=== PATIENT | female | born 1965 | race Caucasian/White ===

== ENCOUNTER 2021-06-26 19:14 | Inpatient (IN) | payer MEDICARE, OTHER ==
[2021-06-26] VITALS (7 sets, daily range): BP systolic 110–136; BP diastolic 61–81
[~2021-06-26] VITALS: Ht 147.3 cm; Wt 69.4 kg
[2021-06-26] MEDS ORDERED: ONDANSETRON 4 MG (ZOFRAN) ORAL DISSOLVE TAB PO PRN (21:30)
[2021-06-26] MEDS ORDERED: MELATONIN 3 MG TABLET PO PRN (21:30)
[2021-06-26] MEDS ORDERED: polyethylene glycoL POWDER 17 GM (MIRALAX) PACK PO PRN (21:30)
[2021-06-26] MEDS ORDERED: ACETAMINOPHEN 325 MG TABLET PO PRN (21:30)
[2021-06-26] MEDS ORDERED: diphenhydrAMINE 25 MG TAB (BENADRYL) PO PRN (21:30)
[2021-06-26] MEDS ORDERED: ANTACID SUSP 30 ML UDC (MYLANTA) PO PRN (21:30)
--- OUTSIDE RECORDS SUMMARY | 2021-06-26 21:30 | XMS REPORT | Encounter Summary ---
Author Author [facility] Organization [facility] Address Unknown Phone Unavailable Care Team Providers Care Documentation Billing Clerk Name Role Phone Laura Hanson MD [phone] No Pcp, Na PCP Unavailable Encounter Details Care Team Description Date Type Department 06/13/2021 Travel Social History Date Tobacco Use Types Packs/Day Years Used Quit: 02/2021 Former Smoker Cigarettes 0.5 40 Smokeless Tobacco: Never Used Comments Alcohol Use Standard Drinks/Week 4 times a year Yes 0 (1 standard drink = 0.6 o z pure alcohol) Alcohol Habits Answer Date Recorded How often do you have a drink containing alcohol? No t asked How many drinks containing alcohol do you have on No t asked a typical day when you are drinking? How often do you have six or more drinks on one Not asked occasion? Comment: 4 times a year 06/13/2021 Sex Assigned at Date Recorded Not on file Date Recorded COVID-19 Exposure Response 06/13/2021 10:25 AM SCENE PAINTER In the last month, have you been in contact with No / Unsure someone who was confirmed or suspected to have Coronavirus / COVID-19? documented as of this encounter Plan of Treatment Not on filedocumented as of this encounter Visit Diagnoses Not on filedocumented in this encounter Additional Health Concerns Noted Time Assessment 06/13/2021 10:33 AM SCENE PAINTER A fall risk assessment has been complet ed for the patient documented as of this encounter Care Teams Start Date End Date Documentation Billing Clerk Relationship Specialty 06/13/21 No Pcp, Na PCP - General 05/05/21 Laura Hanson MD REFERRING Hematology & [address] [place], [place] [address] Oncology LANA ORDAZ [id number] documented as of this encounter
--- OUTSIDE RECORDS SUMMARY | 2021-06-26 21:30 | XMS REPORT | Clinical Summary ---
Author Author [facility] Organization [facility] Address Unknown Phone Unavailable Care Team Providers Care Onyx Chip Terrazzo Worker Name Role Phone Laura Hanson MD [phone] No Pcp, Na PCP Unavailable Source Comments Some departments are not documenting in the electronic medical record. If you d o not see the information that you expected, contact [facility] of Information in [facility] Information Management department at [phone] for further assistan ce in locating additional records.[facility] Allergies Comments Active Allergy Reactions Severity Noted Date Codeine ANAPHYLAXIS High 06/13/2021 Red Dye ANAPHYLAXIS High 06/13/2021 Medications End Date Status Medication Sig Dispensed Refills Start Date Active levothyroxine (SYNTHROID) Take 100 mcg 0 100 mcg tablet by mouth daily 30 minutes before breakfast. Active rosuvastatin (CRESTOR) 40 Take 40 mg by 0 mg tablet mouth daily. Active nortriptyline (PAMELOR) Take 25 mg by 0 25 mg capsule mouth at bedtime daily. Active METOPROLOL TARTRATE PO Take 12.5 mcg 0 by mouth. bid Active prasugreL (EFFIENT) 10 mg Take 10 mg by 0 tablet mouth daily. Active buPROPion XL (WELLBUTRIN Take 300 mg 0 XL) 300 mg tablet by mouth daily. Do not crush or chew. Active duloxetine DR (CYMBALTA) Take 20 mg by 0 20 mg capsule mouth twice daily. Active ESTRADIOL ACETATE VA Insert or 0 Apply 0.5 mg to vaginal area. 3x's a week Active acetaminophen (TYLENOL Take by 0 PO) mouth. prn Active Problems No known active problems Encounters Care Team Description Date Type Specialty Aleksandr De La Vega MD Encounter to discuss test results (Prima ry Dx) 06/17/2021 Scheduled Oncology Telephone Aleksandr De La Vega MD 06/13/2021 Hospital Lab Encounter Aleksandr De La Vega MD Thrombocytopenia (HCC) (Primary Dx); Bleeding diathesis (HCC); Screening for hypothyroidism 06/13/2021 Office Visit Oncology 06/13/2021 Travel Radha Maria RN Navigation Assessment 05/05/2021 Telephone Oncology from Last 3 Months Immunizations Name Administration Dates Next Due Flu vaccine, inj 05/30/2015 unspecified (Historical) Tetanus Vaccine 07/30/2014 Surgical History Surgery Date Site/Laterality Comments HX HEART CATHETERIZATION HX HYSTERECTOMY HX CHOLECYSTECTOMY HX BREAST REDUCTION 07/30/2002 - 07/29/2003 Medical History Medical History Date Comments Heart disease Acquired hypothyroidism Vision decreased Muscular dystrophy, limb girdle (HCC) 1987 Family History Medical History Relation Name Comments Coronary Artery Disease Father Diabetes Father Heart Disease Father Cancer-Lung Maternal Grandfather Arthritis-rheumatoid Mother Coronary Artery Disease Mother Depression Mother Diabetes Mother Heart Disease Mother High Cholesterol Mother Migraines Mother Thyroid Disease Mother Stroke Paternal Aunt Asthma Sister Cancer Sister High Cholesterol Sister Migraines Sister Thyroid Disease Sister Relation Name Status Comments Father Maternal Grandfather Mother Paternal Aunt Sister Social History Date Tobacco Use Types Packs/Day [...] Recorded COVID-19 Exposure Response 06/13/2021 10:25 AM SURGICAL SCRUB TECHNOLOGIST In the last month, have you been in contact with No / Unsure someone who was confirmed or suspected to have Coronavirus / COVID-19? Last Filed Vital Signs Reading Time Taken Comments Vital Sign 113/71 06/13/2021 10:33 AM SURGICAL SCRUB TECHNOLOGIST Blood Pressure 73 06/13/2021 10:33 AM SURGICAL SCRUB TECHNOLOGIST Pulse - - Temperature 16 06/13/2021 10:33 AM SURGICAL SCRUB TECHNOLOGIST Respiratory Rate 96% 06/13/2021 10:33 AM SURGICAL SCRUB TECHNOLOGIST Oxygen Saturation - - Inhaled Oxygen Concentration - - Weight 149.9 cm (4' 11") 06/13/2021 10:33 AM SURGICAL SCRUB TECHNOLOGIST Height - - Body Mass Index Plan of Treatment Health Maintenance Due Date Last Done Comments MEDICARE ANNUAL WELLNESS 1965 VISIT HIV SCREENING 1982 HEPATITIS C SCREENING 1985 PHYSICAL (COMPREHENSIVE) 1985 EXAM CERVICAL CANCER SCREENING 1988 BREAST CANCER SCREENING 2007 DTAP/TDAP VACCINES (1 - 07/31/2014 07/30/2014 Tdap) COLORECTAL CANCER 2017 SCREENING SHINGLES RECOMBINANT 2017 VACCINE (1 of 2) INFLUENZA VACCINE 02/27/2021 05/30/2015 Procedures Comments Procedure Name Priority Date/Time Associated Diag nosis HC PLT Routine 06/13/2021 Bleeding diathe sis (HCC) AGGREGATION-EPINEPH (PFA) 12:06 PM SURGICAL SCRUB TECHNOLOGIST ND BLOOD SMEAR PERIPHERAL Routine 06/13/2021 Blee ding diathesis (HCC) INTERP PHYS W/WRIT REPORT 12:05 PM SURGICAL SCRUB TECHNOLOGIST HC PT(INR) Routine 06/13/2021 Bleeding diathe sis (HCC) 12:05 PM SURGICAL SCRUB TECHNOLOGIST HC PTT(APTT) Routine 06/13/2021 Bleeding diathe sis (HCC) 12:05 PM SURGICAL SCRUB TECHNOLOGIST HC FIBRINOGEN Routine 06/13/2021 Bleeding diathe sis (HCC) 12:05 PM SURGICAL SCRUB TECHNOLOGIST HC COAGULATION FACTOR Routine 06/13/2021 Bleeding diathesis (HCC) VIII, VWP 12:05 PM SURGICAL SCRUB TECHNOLOGIST HC VITAMIN K Routine 06/13/2021 Bleeding diathe sis (HCC) 12:05 PM SURGICAL SCRUB TECHNOLOGIST HC VITAMIN C Routine 06/13/2021 Bleeding diathe sis (HCC) 12:05 PM SURGICAL SCRUB TECHNOLOGIST HC TSH(THYROID Routine 06/13/2021 Screening for STIMULATING HORM) 12:05 PM SURGICAL SCRUB TECHNOLOGIST hypothyroidism from Last 3 Months Results * PLATELET FUNCTION-PFA (06/13/2021 12:06 PM SURGICAL SCRUB TECHNOLOGIST) PFA, 147 83 - 207 SECS [facility] MAIN LAB Collagen/Epinep hrine PFA 89 68 - 142 SECS MAIN LAB Collagen/ADP PFA Normal platelet adhesion MAIN LAB Interpretation screen. Von Willebrand dise ase (type 1,2A,2B,2M,3) is very unlikely. This test is insensitive to platelet aggregation disorders, therefore platelet aggregation studies are recommended for further evaluation if clinically indicated. Pathologist INTERPRETED BY ANG BROUSSARD MADALYN N LAB Signature By the PATH SIGNATURE ABOVE , I attest that I have personally formulated the final interpretation expressed in this report and that the above diagnosis is based upon my examination of the slides and/or other material indicated in this report. Specimen Blood (substance) Performing Organization Address City/State/ZIP Code P sadie Number [facility] [address] [place] [address] * VON WILLEBRAND PROFILE (06/13/2021 12:05 PM SURGICAL SCRUB TECHNOLOGIST) Factor 8 153 REFERENCE LAB Activity Comment: Reference range: 55 to 200 Unit: % ADDITIONAL INFORMATION This test has been modified from the planning and analysis manager's instructions. Its performance characteristics were determined by [facility] in a manner consistent with CLIA requirements. This test has not been cleared or approved by the U.S. Food and Drug Administration. [facility] VW Factor AG 129 REFERENCE LAB Comment: Reference range: 55 to 200 Unit: % ADDITIONAL INFORMATION This test has been modified from the planning and analysis manager's instructions. Its performance characteristics were determined by [facility] in a manner consistent with CLIA requirements. This test has not been cleared or approved by the U.S. Food and Drug Administration. [facility] Securly Von Willebrand 116 REFERENCE LAB Activity Comment: Reference range: 55 to 200 Unit: % ADDITIONAL INFORMATION This test has been modified from the planning and analysis manager's instructions. Its performance characteristics were determined by [facility] in a manner consistent with CLIA requirements. This test has not been cleared or approved by the U.S. Food and Drug Administration. [facility] Interpretation IMPRESSION: No laboratory REFERENCE L AB evidence of von Willebrand disease (VWD). COMMENTS: Normal or elevated factor VIII coagulant activity and/or von Willebrand factor (VWF) antigen and/or VWF activity [latex immunoassay] provide no evidence for von Willebrand disease (VWD). NOTE: VWF antigen and/or VWF latex immunoassay activity and/or factor VIII may be increased above baseline levels by acute or chronic inflammation, stress or adrenergic stimuli, or estrogen and oral contraceptive (OCP) therapy, liver disease or recent infusion of plasma, cryoprecipitate, desmopressin (DDAVP) or VWF concentrates and mask the diagnosis of mild von Willebrand disease (VWD). Note: Apparently normal individuals of blood group "O" may have somewhat lower factor VIII and von Willebrand factor (VWF) than individuals of other blood groups, such that (for example) those of group "O" may have VWF antigen as low as 40-50%, whereas normals of nongroup "O" generally have VWF antigen above 60-70%. Suggest clinical correlation. [facility] Specimen Blood (substance) Performing Organization Address City/[facility] Code P sadie Number REFERENCE LAB REFERENCE LAB See results for address. * VITAMIN K (06/13/2021 12:05 PM SURGICAL SCRUB TECHNOLOGIST) Pathologist [facility] Vitamin K 0.67 REFERENCE LAB Comment: Reference range: 0.10 to 2.20 Unit: ng/mL ADDITIONAL INFORMATION This test was developed and its performance characteristics determined by [facility] in a manner consistent with CLIA requirements. This test has not been cleared or approved by the U.S. Food and Drug Administration. [facility], [place] [address] Specimen Blood (substance) Performing Organization Address [facility] P sadie Number REFERENCE LAB REFERENCE LAB See results for address. * VITAMIN C (ASCORBIC ACID) (06/13/2021 12:05 PM SURGICAL SCRUB TECHNOLOGIST) Vitamin C 0.4 REFERENCE LAB Comment: Reference range: 0.4 to 2.0 Unit: mg/dL ADDITIONAL INFORMATION This test was developed and its performance characteristics determined by [facility] in a manner consistent with CLIA requirements. This test has not been cleared or approved by the U.S. Food and Drug Administration. [facility], [place] [address] Specimen Blood (substance) Performing Organization Address [facility] P sadie Number REFERENCE LAB REFERENCE LAB See results for address. * PERIPHERAL SMEAR (06/13/2021 12:05 PM SURGICAL SCRUB TECHNOLOGIST) Peripheral NORMAL PERIPHERAL SMEAR. MAIN LAB Smear Pathologist INTERPRETED BY ANG CHIN M[facility] SYSTEMIndira S[facility] LAB Signature By the PATH SIGNATURE ABOVE , I attest that I have personally formulated the final interpretation expressed in this report and that the above diagnosis is based upon my examination of the slides and/or other material indicated in this report. Specimen Performing Organization Address [facility] P sadie Number MAIN LAB [address] [place] [address] * PTT (APTT) (06/13/2021 12:05 PM SURGICAL SCRUB TECHNOLOGIST) APTT 29.3 24.0 - 36.5 SEC MAIN LAB Specimen Performing Organization Address [facility] P sadie Number MAIN LAB [address] [place] [address] * PROTIME INR (PT) (06/13/2021 12:05 PM SURGICAL SCRUB TECHNOLOGIST) INR 0.9 0.8 - 1.2 MAIN LAB Specimen Blood (substance) Performing Organization Address [facility] P sadie Number MAIN LAB [address] [phone] * FIBRINOGEN (06/13/2021 12:05 PM SURGICAL SCRUB TECHNOLOGIST) Fibrinogen 299 200 - 400 MG/DL MAIN LAB Specimen Blood (substance) Performing Organization Address [facility] P sadie Number MAIN LAB [address] [place] [address] * THYROID STIMULATING HORMONE-TSH (06/13/2021 12:05 PM SURGICAL SCRUB TECHNOLOGIST) TSH 0.01 (L) 0.35 - 5.00 MCU/ML MAIN LAB Specimen Blood (substance) Performing Organization Address City/State/ZIP Code P sadie Number [facility] [address] [place] [address] from Last 3 Months Insurance Type Payer Benefit Subscriber ID Effective Phone Address Plan / Dates Group Medicare BCBS [place] [employer] BCBS [id number] 2020-P [phone] [address] MEDICARE resent [id number] [facility] (O) [place] [address] [address] [facility] (Home) [place] [phone] Advance Directives Patient Process Tech Explanation Type Date Recorded Advance Directive/DPOA Care Teams Start Date End Date Onyx Chip Terrazzo Worker Relationship Specialty 06/13/21 No Pcp, Na PCP - General 05/05/21 Laura Hanson MD REFERRING Hematology & [address] [place] [address] Oncology [place] ORDAZ [id number]
--- OUTSIDE RECORDS SUMMARY | 2021-06-26 21:30 | XMS REPORT | Encounter Summary ---
Author Author [facility] Organization [facility] Address Unknown Phone Unavailable Care Team Providers Care Pressure Controller Name Role Phone Doctor, Miscellaneous PCP Unavailable Laura Hanson MD [phone] Reason for Visit * Reason Onset Date Comments Navigation Assessment 05/05/2021 Encounter Details Care Team Description Date Type Department Radha Maria RN Navigation Assessment 05/05/2021 Telephone Oncology: [address] [phone] Social History Date Tobacco Use Types Packs/Day Years Used Never Assessed Sex Assigned at Date Recorded Not on file documented as of this encounter Miscellaneous Notes * Telephone Encounter - Radha Maria RN - 05/05/2021 9:32 AM CDT Navigation Intake Assessment Document Patient Name: Dalia Dey : 1965 Insurance: [facility] Appointment Info: Future Appointments Date Time Provider Department Center 06/13/2021 11:00 AM Aleksandr De La Vega MD [id number] Exam Diagnosis & Reason for Visit: Easy bruising Physician Info: Referring Physician/Hem-Onc: Dr. Laura Hanson - [facility] Contact Name & Number: Rossana Sandy RN - ph. [phone] Records are in the Outside Records tab. History of Present Illness: Patient is a 55 year old female who is being referr ed to hematology for a second opinion of unexplained easy bruising. She is of f all blood thinners except aspirin and prasugrel. She was off aspirin from to February 2021, but did not see any improvement in bruising. Comments: COVID-19 guidelines reviewed with patient, including: visitor and uni versal masking policies, and a temperature check at the facility entrance upon a rrival. documented in this encounter Plan of Treatment Not on filedocumented as of this encounter Visit Diagnoses Not on filedocumented in this encounter Care Teams Start Date End Date Pressure Controller Relationship Specialty 05/04/21 06/12/21 Doctor, Miscellaneous PCP - General Internal Medicine 05/05/21 Laura Hanson MD REFERRING Hematology & [address] [place] [address] Oncology LANA ORDAZ [id number] documented as of this encounter
--- OUTSIDE RECORDS SUMMARY | 2021-06-26 21:30 | XMS REPORT | Encounter Summary ---
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 documented as of this encounter Medications at Time of Discharge Start Date End Date Medication Sig Dispensed Refills acetaminophen (TYLENOL Take by 0 PO) mouth. prn buPROPion XL (WELLBUTRIN Take 300 mg 0 XL) 300 mg tablet by mouth daily. Do not crush or chew. duloxetine DR (CYMBALTA) Take 20 mg by 0 20 mg capsule mouth twice daily. ESTRADIOL ACETATE VA Insert or 0 Apply 0.5 mg to vaginal area. 3x's a week levothyroxine (SYNTHROID) Take 100 mcg 0 100 mcg tablet by mouth daily 30 minutes before breakfast. METOPROLOL TARTRATE PO Take 12.5 mcg 0 by mouth. bid nortriptyline (PAMELOR) Take 25 mg by 0 25 mg capsule mouth at bedtime daily. prasugreL (EFFIENT) 10 mg Take 10 mg by 0 tablet mouth daily. rosuvastatin (CRESTOR) 40 Take 40 mg by 0 mg tablet mouth daily. documented as of this encounter Discharge Disposition Code Departure Means Destination Disposition Home Home or Self Care documented in this encounter Plan of Treatment Not on filedocumented as of this encounter Procedures Comments Procedure Name Priority Date/Time Associated Diag nosis HC PLT Routine 06/13/2021 Bleeding diathe sis (HCC) AGGREGATION-EPINEPH (PFA) 12:06 PM UTILITY GELAT[employer] HC COAGULATION FACTOR Routine 06/13/2021 Bleeding diathesis ([facility]) VIII, VWP 12:05 PM [employer]ILITY GELATIN [employer]KER HC VITAMIN K Routine 06/13/2021 Bleeding diathe sis (HCC) 12:05 PM UTILITY GELATIN MAKER HC VITAMIN C Routine 06/13/2021 Bleeding diathe sis (HCC) 12:05 PM UTILITY GELATIN MAKER [place] BLOOD SMEAR PERIPHERAL Routine 06/13/2021 Blee ding diathesis (HCC) INTERP PHYS W/WRIT REPORT 12:05 PM UTILITY G[employer]AT[employer] HC PTT(APTT) Routine 06/13/2021 Bleeding diathe sis (HCC) 12:05 PM UTILITY GELATIN [employer] HC PT(INR) Routine 06/13/2021 Bleeding diathe sis (HCC) 12:05 PM UTILITY GELATIN [employer]KER HC FIBRINOGEN Routine 06/13/2021 Bleeding diathe sis (HCC) 12:05 PM UTILITY GELATIN MAKER HC TSH(THYROID Routine 06/13/2021 Screening for STIMULATING HORM) 12:05 PM UTILITY G[employer]ATIN [employer]ER hypothyroidism documented in this encounter Results * PLATELET FUNCTION-PFA (06/13/2021 12:06 PM UTILITY GELATIN MAKER) PFA, 147 83 - 207 SECS [facility] Collagen/Epinep hrine PFA 89 68 - 142 SECS [facility] Collagen/ADP PFA Normal platelet adhesion [facility] Interpretation screen. Von Willebrand dise ase (type 1,2A,2B,2M,3) is very unlikely. This test is insensitive to platelet aggregation disorders, therefore platelet aggregation studies are recommended for further evaluation if clinically indicated. Pathologist INTERPRETED BY ANG CHIN M.D. [facility] Signature By the PATH [facility] , I attest that I have personally formulated the final interpretation expressed in this report and that the above diagnosis is based upon my examination of the slides and/or other material indicated in this report. Specimen Blood (substance) Performing Organization Address City/[facility]/ZIP Code P sadie Number [facility] [address] [place] [address] * PERIPHERAL SMEAR (06/13/2021 12:05 PM UTILITY GELATIN MAKER) Pathologist [facility] Peripheral NORMAL PERIPHERAL SMEAR. MAIN LAB Smear Pathologist INTERPRETED BY ANG CHIN M.D. [facility] Signature By the PATH [facility] , I attest that I have personally formulated the final interpretation expressed in this report and that the above diagnosis is based upon my examination of the slides and/or other material indicated in this report. Specimen Performing Organization Address City/[facility]/ZIP Code P sadie Number [facility] [address] [place] [address] * PROTIME INR (PT) (06/13/2021 12:05 PM UTILITY GELATIN MAKER) Pathologist [facility] INR 0.9 0.8 - 1.2 [facility] Specimen Blood (substance) Performing Organization Address City/[facility]/ZIP Code P sadie Number [facility] [address] [place] [address] * PTT (APTT) (06/13/2021 12:05 PM UTILITY GELATIN MAKER) Pathologist [facility] APTT 29.3 24.0 - 36.5 SEC [facility] Specimen Performing Organization Address [facility] P sadie Number [facility] [address] [place] [address] * FIBRINOGEN (06/13/2021 12:05 PM UTILITY GELATIN MAKER) Pathologist [facility] Fibrinogen 299 200 - 400 MG/DL [facility] Specimen Blood (substance) Performing Organization Address City/State/ZIP Code P sadie Number MAIN LAB [address] [place] [address] * VON WILLEBRAND PROFILE (06/13/2021 12:05 PM UTILITY GELATIN MAKER) [facility] Signature Factor 8 153 REFERENCE LAB Activity Comment: Reference range: 55 to 200 Unit: % ADDITIONAL INFORMATION This test has been modified from the copy chaser's instructions. Its performance characteristics were determined by [facility] in a manner consistent with CLIA requirements. This test has not been cleared or approved by the U.S. Food and Drug Administration. [facility] VW Factor AG 129 REFERENCE LAB Comment: Reference range: 55 to 200 Unit: % ADDITIONAL INFORMATION This test has been modified from the copy chaser's instructions. Its performance characteristics were determined by [facility] in a manner consistent with CLIA requirements. This test has not been cleared or approved by the U.S. Food and Drug Administration. [facility] Von Willebrand 116 REFERENCE LAB Activity Comment: Reference range: 55 to 200 Unit: % ADDITIONAL INFORMATION This test has been modified from the copy chaser's instructions. Its performance characteristics were determined by [facility] in a manner consistent with CLIA requirements. This test has not been cleared or approved by the U.S. Food and Drug Administration. [facility] Interpretation IMPRESSION: No laboratory REFERENCE L AB [...] VWF antigen above 60-70%. Suggest clinical correlation. [facility] Specimen Blood (substance) Performing Organization Address [facility] P sadie Number REFERENCE LAB REFERENCE LAB See results for address. * VITAMIN K (06/13/2021 12:05 PM UTILITY GELATIN MAKER) [facility] Vitamin K 0.67 REFERENCE LAB Comment: Reference range: 0.10 to 2.20 Unit: ng/mL ADDITIONAL INFORMATION This test was developed and its performance characteristics determined by [facility] in a manner consistent with CLIA requirements. This test has not been cleared or approved by the U.S. Food and Drug Administration. [facility], [address] [place] [address] Specimen Blood (substance) Performing Organization Address [facility] P sadie Number REFERENCE LAB REFERENCE LAB See results for address. * VITAMIN C (ASCORBIC ACID) (06/13/2021 12:05 PM UTILITY GELATIN MAKER) [facility] Vitamin C 0.4 REFERENCE LAB Comment: Reference range: 0.4 to 2.0 Unit: mg/dL ADDITIONAL INFORMATION This test was developed and its performance characteristics determined by [facility] in a manner consistent with CLIA requirements. This test has not been cleared or approved by the U.S. Food and Drug Administration. [facility], [address] [place] [address] Specimen Blood (substance) Performing Organization Address [facility] P sadie Number REFERENCE LAB REFERENCE LAB See results for address. * THYROID STIMULATING HORMONE-TSH (06/13/2021 12:05 PM UTILITY GELATIN MAKER) TSH 0.01 (L) 0.35 - 5.00 MCU/ML [facility] Specimen Blood (substance) Performing Organization Address City/State/ZIP Code P sadie Number [facility] [address] [place] [address] documented in this encounter Visit Diagnoses Diagnosis Screening for hypothyroidism Screening for thyroid disorder Bleeding diathesis (HCC) Unspecified hemorrhagic conditions documented in this encounter Additional Health Concerns Noted Time Assessment 06/13/2021 10:33 AM UTILITY GELATIN MAKER A fall risk assessment has been complet ed for the patient documented as of this encounter Care Teams Start Date End Date Poultry Farmer Relationship Specialty 06/13/21 No Pcp, Na PCP - General 05/05/21 Laura Hanson MD REFERRING Hematology & [address] [place] [address] Oncology [place]NA ORDAZ [id number] documented as of this encounter
--- OUTSIDE RECORDS SUMMARY | 2021-06-26 21:30 | XMS REPORT | Encounter Summary ---
Author Author [facility] Organization [facility] Address Unknown Phone Unavailable Care Team Providers Care Grey Roll Man Name Role Phone Laura Hanson MD [phone] No Pcp, Na PCP Unavailable Reason for Visit * Reason Comments Heme/Onc Care New Patient * Consult, Test & Treat (Routine) - New Request Diagnoses / Procedures Referred By Contact Referred To Conta ct Specialty Laura Hanson MD [address] [place] [address] Referral ID Status Reason Start Date Expiration Visits Vi sits Date Requested Authorized [id number] New Request 05/04/2021 05/04/2022 1 1 Encounter Details Care Team Description Date Type Department Aleksandr De La Vega MD [address] [place] [address] Thrombocytopenia (HCC) (Primary Dx); Bleeding diathesis (HCC); Screening for hypothyroidism 06/13/2021 Office Visit Hematology: [facility] [address] [facility] [place] [place] [address] Social History Date Tobacco Use Types Packs/Day [...] Recorded COVID-19 Exposure Response 06/13/2021 10:25 AM SALES ENABLEMENT SPECIALIST In the last month, have you been in contact with No / Unsure someone who was confirmed or suspected to have Coronavirus / COVID-19? documented as of this encounter Last Filed Vital Signs Reading Time Taken Comments Vital Sign 113/71 06/13/2021 10:33 AM SALES ENABLEMENT SPECIALIST Blood Pressure 73 06/13/2021 10:33 AM SALES ENABLEMENT SPECIALIST Pulse - - Temperature 16 06/13/2021 10:33 AM SALES ENABLEMENT SPECIALIST Respiratory Rate 96% 06/13/2021 10:33 AM SALES ENABLEMENT SPECIALIST Oxygen Saturation - - Inhaled Oxygen Concentration - - Weight 149.9 cm (4' 11") 06/13/2021 10:33 AM SALES ENABLEMENT SPECIALIST Height - - Body Mass Index documented in this encounter Progress Notes * Aleksandr De La Vega MD - 06/13/2021 11:00 AM SALES ENABLEMENT SPECIALIST Images from the original note were not included. Hematology Clinic Progress Note SUBJECTIVE HPI: Dalia Dey is a 55 y.o. 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 She has not previously been seen in Hematology clinic. She wa s referred by Dr. Laura Hanson - [facility] [place]. She present s with her today. She reports that in August 2020 she noted a tendency to bruise easily. She seaman d not had this issue previously. Bruises have occurred "all over" including the arms, legs, buttocks, and torso. This has been without any apparent trauma. S he has prolonged bleeding with any cutaneous scratches. She denies any bleeding from the nose, eyes, ears, or GI tract. She did have frequent nosebleeds as a child, however these resolved. She plans to have an EGD in near future, althoug h a fecal occult blood test did not demonstrate any evidence of bleeding. She initially believed that this was related to a new low-carbohydrate diet (danae i-restricted diet similar to the ketogenic diet), which she was following in an attempt to lose weight. She also thought it may have been caused by taking supp lements including CoQ-10 and garlic. She changed back to her prior dietary prac tices in October 2020, but the bruising continued. She currently eats chicken, po rk, beef; no deep fried foods; avocado oil, himalayan sea salt. Brocolli, carrot s, lettuce, green beans, cabbage. She has not taken any supplements or herbals since October 2020. In February 2021 she had a myocardial infarction. She changed her antiplatelet ag ents from aspirin and plavix to aspirin and prasugrel, however she noted no may ge in the bruising. She previously noted no such symptoms while on dual antipla telet therapy since she underwent coronary artery bypass grafting in in 2014. She reports no prior bleeding problems, including with her surgical procedures i ncluding coronary artery bypass grafting, hysterectomy, cholecystectomy, and hector ast reduction surgery. She had 1 miscarriage and 2 live births without complica tion. She did not have excessively heavy bleeding with previous menstruation. Family history: Her younger sister had leukemia as a child (possibly ALL). Her grandson has frequent nose bleeds. Her sister has thyroid disease. Her mother and father are . On her father's side of the family there is a history of stroke and dementia and multiple family members. Social history: She drinks alcohol approximately 3-4 times per year. She previo usly smoked 1/2 pack of cigarettes per day for 40 years. She quit in February. She smoked marijuana many years ago. She denies noting any fat pad development on the back, striae development, or te langiectasias. She has no known history of liver or kidney disease. Medications are notable for dual antiplatelet therapy with aspirin and prasugrel . Previously she took aspirin and Plavix. She reports having laboratory testin g demonstrating that Plavix was not working well. She takes Wellbutrin and dulo xetine. She had switched to sertraline for 1 month in approximately January 2021, however noted no change in bruising on this agent. She was previously on Repath a but hasn't been on for 2-3 years ROS: 10-point ROS performed and negative except for: - easy bruising PMH: Medical History: Diagnosis Date Acquired hypothyroidism Heart disease Muscular dystrophy, limb girdle (HCC) 1987 Vision decreased PSH: Surgical History: Procedure Laterality Date HX BREAST REDUCTION 2002 HX CHOLECYSTECTOMY HX HEART CATHETERIZATION HX HYSTERECTOMY Family Hx: Family History Problem Relation Age of Onset Diabetes Mother Heart Disease Mother High Cholesterol Mother Arthritis-rheumatoid Mother Thyroid Disease Mother Migraines Mother Depression Mother Coronary Artery Disease Mother Diabetes Father Heart Disease Father Coronary Artery Disease Father Cancer Sister Asthma Sister High Cholesterol Sister Thyroid Disease Sister Migraines Sister Stroke Paternal Aunt Cancer-Lung Maternal Grandfather Social Hx: Social History Tobacco Use Smoking status: Former Smoker Packs/day: 0.50 Years: 40.00 Pack years: 20.00 Types: Cigarettes Quit date: 02/2021 Years since quittin.2 Smokeless tobacco: Never Used Substance Use Topics Alcohol use: Yes Comment: 4 times a year Drug use: Never Allergies: Allergies Allergen Reactions Codeine ANAPHYLAXIS Red Dye ANAPHYLAXIS Home Medications: Home Medications Medication Sig acetaminophen (TYLENOL PO) Take by mouth. prn buPROPion XL (WELLBUTRIN XL) 300 mg tablet Take 300 mg by mouth daily. Do not cr ush or chew. duloxetine DR (CYMBALTA) 20 mg capsule Take 20 mg by mouth twice daily. ESTRADIOL ACETATE VA Insert or Apply 0.5 mg to vaginal area. 3x's a week levothyroxine (SYNTHROID) 100 mcg tablet Take 100 mcg by mouth daily 30 minutes before breakfast. METOPROLOL TARTRATE PO Take 12.5 mcg by mouth. bid nortriptyline (PAMELOR) 25 mg capsule Take 25 mg by mouth at bedtime daily. prasugreL (EFFIENT) 10 mg tablet Take 10 mg by mouth daily. rosuvastatin (CRESTOR) 40 mg tablet Take 40 mg by mouth daily. OBJECTIVE Vital Signs: Vitals: 06/13/21 1033 BP: 113/71 BP Source: Arm, Left Upper Patient Position: Sitting Pulse: 73 Resp: 16 SpO2: 96% Height: 149.9 cm (59") PainSc: Six There is no height or weight on file to calculate BMI. Physical Exam: GENERAL: alert, oriented, no apparent distress HEENT: no obvious telangiectasias; PHUC; nares patent; no lymphadenopathy LUNGS: clear to auscultation bilaterally; no wheezes, rales, or rhonchi HEART: RRR, S1/S2 wnl, no murmur/rubs/gallops ABDOMEN: Soft, non-tender, non-distended, normal BS; ecchymoses of left lateral abdomen as below EXTREMITIES: pulses present, trace LE edema bilaterally SKIN: scatter ecchymoses on R elbow crease; L forearm; left lateral abdomen; oth erwise warm, dry, and no other observable rashes/telangiectasias ASSESSMENT & PLAN We discussed the causes of easy bruising, which include medication side effects, heavy alcohol use, malnutrition, vitamin deficiencies, endogenous or exogenous glucocorticoids, connective tissue diseases, inherited or acquired hematologic d isorders, kidney disease, and liver disease among others. We discussed that whi le the bruising may not be dangerous, it warrants investigation as it may indica te an increased risk for other kinds of bleeding. At this time no other bleedin g is apparent, and she does not have any prior history of abnormal bleeding to s uggest inherited bleeding diathesis. She has tolerated other hemostatic challen ges without issue, and has never required a blood transfusion or surgical interv ention because of bleeding. She takes dual antiplatelet therapy for coronary artery disease; she also takes serotonin modulating agents. This combination can certainly cause a tendency to bruise or bleed. However, she is concerned that this tendency was not present prior to August 2020. If Plavix was not an effective agent, then she may have an increased amount of bruising on prasugrel. However she noted the increasing bruising prior to initiation of prasugrel. We recommended a laboratory evaluat ion for causes of bleeding diathesis. If this does not reveal an etiology, then we will discuss further testing or clinical monitoring. Patient plan discussed with Dr. De La Vega. Will discuss results via telephone. Patient Instructions Your Care Team Dr. Aleksandr De La Vega Speech Assistant Maye Rudd, TEQUILA Hematology Nurse Practitioner Clinical Nurse Coordinators (CNC's) Abhijeet Cunha [phone] BEULAH Pérez: [phone] Messages left on nurses' line are checked Sunday-Sunday 8:00 AM - 3:30PM Evening (after 3:30PM), weekend and holiday on-call [phone] For urgent needs after hours, please ask for the oncologist on-call to be pages. For urgent needs during business hours, please ask for Dr. De La Vega' nurse, to be p aged. Notes: -Allow one business week for our office to complete any requested paperwork (FML A, etc.) -My Chart is the preferred communication method. Please allow one business day f or questions to be answered. -Clinic policy for medication refills: All prescriptions need to be called in 24 hours in advance and will be answe red within 1 business day. Multiple calls and messages will delay in refilling medication as it limits our ability to respond appropriately. Do not go to the pharmacy without being sure your prescription is there and ready for pickup. Roney Schulte MD PGY2, Internal Medicine Available on Voalte ATTESTATION I personally performed the [place] portions of the E/M visit, discussed case with re sident and concur with resident documentation of history, physical exam, assessm ent, and treatment plan unless otherwise noted. I edited the note. Staff name: Alekasndr De La Vega MD Date: 06/16/2021 S ENABLEMENT SPECIALIST documented in this encounter Miscellaneous Notes * Patient Instructions - Cristal Ortega RN - 06/13/2021 11:00 AM SALES ENABLEMENT SPECIALIST Your Care Team Dr. Aleksandr De La Vega Speech Assistant Maye Rudd APRN Hematology Nurse Practitioner Clinical Nurse Coordinators (CNC's) Abhijeet Cunha [phone] BEULAH Pérez: [phone] Messages left on nurses' line are checked Sunday-Sunday 8:00 AM - 3:30PM Evening (after 3:30PM), weekend and holiday on-call [phone] For urgent needs after hours, please ask for the oncologist on-call to be pages. For urgent needs during business hours, please ask for Dr. De La Vega' nurse, to be p aged. Notes: -Allow one business week for our office to complete any requested paperwork (FML A, etc.) -My Chart is the preferred communication method. Please allow one business day f or questions to be answered. -Clinic policy for medication refills: All prescriptions need to be called in 24 hours in advance and will be answe red within 1 business day. Multiple calls and messages will delay in refilling medication as it limits our ability to respond appropriately. Do not go to the pharmacy without being sure your prescription is there and ready for pickup. S ENABLEMENT SPECIALIST documented in this encounter Plan of Treatment Order Schedule Name Type Priority Associated Diag noses Expected: 06/13/2021, Expires: 2 CBC AND DIFF Lab Routine Bleeding diathe sis (HCC) documented as of this encounter Results * PLATELET FUNCTION-PFA (06/13/2021 12:06 PM SALES ENABLEMENT SPECIALIST) [facility] PFA, 147 83 - 207 SECS [facility] Collagen/Epinep hrine PFA 89 68 - 142 SECS [facility] Collagen/ADP PFA Normal platelet adhesion [facility] Interpretation screen. Von Willebrand dise ase (type 1,2A,2B,2M,3) is very unlikely. This test is insensitive to platelet aggregation disorders, therefore platelet aggregation studies are recommended for further evaluation if clinically indicated. Pathologist INTERPRETED BY ANG CHIN M.D. MADALYN LAB Signature By the PATH SIGNATURE ABOVE , I attest that I have personally formulated the final interpretation expressed in this report and that the above diagnosis is based upon my examination of the slides and/or other material indicated in this report. Specimen Blood (substance) Performing Organization Address City/[facility]/ZIP Code P sadie Number [facility] [address] [place] [address] * THYROID STIMULATING HORMONE-TSH (06/13/2021 12:05 PM SALES ENABLEMENT SPECIALIST) [facility] TSH 0.01 (L) 0.35 - 5.00 MCU/ML [facility] Specimen Blood (substance) Performing Organization Address [facility]/ZIP [facility] P sadie Number [facility] [address] [place] [address] * VITAMIN C (ASCORBIC ACID) (06/13/2021 12:05 PM SALES ENABLEMENT SPECIALIST) [facility] Vitamin C 0.4 REFERENCE LAB Comment: Reference range: 0.4 to 2.0 Unit: mg/dL ADDITIONAL INFORMATION This test was developed and its performance characteristics determined by [facility] in a manner consistent with CLIA requirements. This test has not been cleared or approved by the U.S. Food and Drug Administration. [facility], [address] [place] [address] Specimen Blood (substance) Performing Organization Address [facility] P sadie Number REFERENCE LAB REFERENCE LAB See results for address. * VITAMIN K (06/13/2021 12:05 PM SALES ENABLEMENT SPECIALIST) [facility] Vitamin K 0.67 REFERENCE LAB Comment: Reference range: 0.10 to 2.20 Unit: ng/mL ADDITIONAL INFORMATION This test was developed and its performance characteristics determined by [facility] in a manner consistent with CLIA requirements. This test has not been cleared or approved by the U.S. Food and Drug Administration. [facility], [address] [place] [address] Specimen Blood (substance) Performing Organization Address [facility] P sadie Number REFERENCE LAB REFERENCE LAB See results for address. * VON WILLEBRAND PROFILE (06/13/2021 12:05 PM SALES ENABLEMENT SPECIALIST) [facility] Factor 8 153 REFERENCE LAB Activity Comment: Reference range: 55 to 200 Unit: % ADDITIONAL INFORMATION This test has been modified from the ammonia nitrate operator's instructions. Its performance characteristics were determined by [facility] in a manner consistent with CLIA requirements. This test has not been cleared or approved by the U.S. Food and Drug Administration. [facility] VW Factor AG 129 REFERENCE LAB Comment: Reference range: 55 to 200 Unit: % ADDITIONAL INFORMATION This test has been modified from the ammonia nitrate operator's instructions. Its performance characteristics were determined by [facility] in a manner consistent with CLIA requirements. This test has not been cleared or approved by the U.S. Food and Drug Administration. [facility] Von Willebrand 116 REFERENCE LAB Activity Comment: Reference range: 55 to 200 Unit: % ADDITIONAL INFORMATION This test has been modified from the ammonia nitrate operator's instructions. Its performance characteristics were determined by [facility] in a manner consistent with CLIA requirements. This test has not been cleared or approved by the U.S. Food and Drug Administration. [facility] Interpretation IMPRESSION: No laboratory REFERENCE L AB [...] VWF antigen above 60-70%. Suggest clinical correlation. [facility] Specimen Blood (substance) Performing Organization Address [facility] Code P sadie Number REFERENCE LAB REFERENCE LAB See results for address. * FIBRINOGEN (06/13/2021 12:05 PM SALES ENABLEMENT SPECIALIST) Fibrinogen 299 200 - 400 MG/DL MAIN LAB Specimen Blood (substance) Performing Organization Address [facility] P sadie Number [facility] MAIN [facility] [address] [place] [address] * PTT (APTT) (06/13/2021 12:05 PM SALES ENABLEMENT SPECIALIST) APTT 29.3 24.0 - 36.5 SEC [facility] MAIN LAB Specimen Performing Organization Address [facility] P sadie Number MAIN LAB [address] [place] [address] * PROTIME INR (PT) (06/13/2021 12:05 PM SALES ENABLEMENT SPECIALIST) INR 0.9 0.8 - 1.2 MAIN LAB Specimen Blood (substance) Performing Organization Address City/State/ZIP Code P sadie Number MAIN LAB [address] [place] [address] * PERIPHERAL SMEAR (06/13/2021 12:05 PM SALES ENABLEMENT SPECIALIST) Peripheral NORMAL PERIPHERAL SMEAR. MAIN LAB Smear Pathologist INTERPRETED BY ANG CHIN M.D. MADALYN N LAB Signature By the PATH SIGNATURE ABOVE , I attest that I have personally formulated the final interpretation expressed in this report and that the above diagnosis is based upon my examination of the slides and/or other material indicated in this report. Specimen Performing Organization Address City/[facility] Code P sadie Number MAIN LAB [address] [place] [address] documented in this encounter Visit Diagnoses Diagnosis Thrombocytopenia (HCC) - Primary Thrombocytopenia, unspecified Bleeding diathesis (HCC) Unspecified hemorrhagic conditions Screening for hypothyroidism Screening for thyroid disorder documented in this encounter Historical Medications * This list may reflect changes made after this encounter. Start Date End Date Medication Sig Dispensed Refills acetaminophen (TYLENOL Take by 0 PO) mouth. prn ESTRADIOL ACETATE VA Insert or 0 Apply 0.5 mg to vaginal area. 3x's a week duloxetine DR (CYMBALTA) Take 20 mg by 0 20 mg capsule mouth twice daily. buPROPion XL (WELLBUTRIN Take 300 mg 0 XL) 300 mg tablet by mouth daily. Do not crush or chew. prasugreL (EFFIENT) 10 mg Take 10 mg by 0 tablet mouth daily. METOPROLOL TARTRATE PO Take 12.5 mcg 0 by mouth. bid nortriptyline (PAMELOR) Take 25 mg by 0 25 mg capsule mouth at bedtime daily. rosuvastatin (CRESTOR) 40 Take 40 mg by 0 mg tablet mouth daily. levothyroxine (SYNTHROID) Take 100 mcg 0 100 mcg tablet by mouth daily 30 minutes before breakfast. added in this encounter Additional Health Concerns Noted Time Assessment 06/13/2021 10:33 AM SALES ENABLEMENT SPECIALIST A fall risk assessment has been complet ed for the patient documented as of this encounter Care Teams Start Date End Date Grey Roll Man Relationship Specialty 06/13/21 No Pcp, Na PCP - General 05/05/21 Laura Hanson MD REFERRING Hematology & [facility] Oncology [place]NA ORDAZ [id number] documented as of this encounter
--- OUTSIDE RECORDS SUMMARY | 2021-06-26 21:30 | XMS REPORT | Encounter Summary ---
Author Author [facility] Organization [facility] Address Unknown Phone Unavailable Care Team Providers Care Social Work Assistant Name Role Phone Laura Hanson MD [phone] No Pcp, Na PCP Unavailable Reason for Visit * Reason Comments Results Encounter Details Care Team Description Date Type Department Aleksandr De La Vega MD [address] [place] [address] Encounter to discuss test results (Prima ry Dx) 06/17/2021 Scheduled Hematology: Main [facility], Telephone [facility] [address] [facility] [place] [address] Social History Date Tobacco Use [...] Recorded COVID-19 Exposure Response 06/13/2021 10:25 AM ELECTROTYPE MOLDER In the last month, have you been in contact with No / Unsure someone who was confirmed or suspected to have Coronavirus / COVID-19? documented as of this encounter Progress Notes * Aleksandr De La Vega MD - 06/17/2021 10:20 AM ELECTROTYPE MOLDER Obtained patient's verbal consent to treat them and their agreement to TUKHS fin ancial policy and NPP via this telehealth visit during the Coronavirus Public [facility] Emergency Name: Dalia Dey Date of : 1965 Date of Service: 06/17/2021 Reason for visit: Review results We reviewed the results of recent testing. Assessment and Recommendations: Easy bruising Low TSH Borderline vitamin C level We discussed thecauses of easy bruising, which includemedication side effect s, heavy alcohol use, malnutrition,vitamin deficiencies, endogenous or exogeno us glucocorticoids,connective tissue diseases,inherited or acquiredhematol ogicdisorders, kidney disease, andliver diseaseamong others. We discussed that while the bruising may not be dangerous, it warrants investigation as it m ay indicate an increased risk for other kinds of bleeding. At this time no othe r bleeding is apparent, and she does not have any prior history of abnormal blee ding to suggest inherited bleeding diathesis.She has tolerated other hemosta tic challenges without issue, and has never required a blood transfusion or surg ical intervention because of bleeding. She takes dual antiplatelet [...] increasing bruising prior to initiation of prasugrel. Laboratory evaluation demonstrated low TSH (0.01), borderline vitamin C, normal PFA, normal vitamin K, normal perip heral blood smear, normal von Willebrand studies, normal INR, and normal PTT. S he reports that her primary care physician has been decreasing the dose of her l evothyroxine. We discussed that hyperthyroidism can increase cutaneous blood rock pply and decrease keratin, leading to an increase in bruising. Perhaps this may explain why the bruising worsened, as it does seem to correspond temporally. We discussed that a borderline vitamin C level could also contribute, and that th ere is minimal Hockman supplementation. As such she could consider resuming vit marks C to see whether this improves the bruising. We reviewed that overall, usman ing dual antiplatelet therapy remains the most likely clinical feature to cause easy bruising. We will monitor clinically for the next 3 months. Return to clinic: phone call in 3 months Recent Results (from the past 672 hour(s)) THYROID STIMULATING HORMONE-TSH Collection Time: 06/13/21 12:05 PM Result Value Ref Range TSH 0.01 (L) 0.35 - 5.00 MCU/ML VITAMIN C (ASCORBIC ACID) Collection Time: 06/13/21 12:05 PM Result Value Ref Range Vitamin C 0.4 VITAMIN K Collection Time: 06/13/21 12:05 PM Result Value Ref Range Vitamin K 0.67 VON WILLEBRAND PROFILE Collection Time: 06/13/21 12:05 PM Result Value Ref Range Factor 8 Activity 153 VW Factor AG 129 Von Willebrand Activity 116 Interpretation IMPRESSION: No laboratory evidence of von Willebrand disease (VWD). COMMENTS: [...] of nongroup "O" generally have VWF antigen abo ve 60-70%. Suggest clinical correlation. [facility] FIBRINOGEN Collection Time: 06/13/21 12:05 PM Result Value Ref Range Fibrinogen 299 200 - 400 MG/DL PTT (APTT) Collection Time: 06/13/21 12:05 PM Result Value Ref Range APTT 29.3 24.0 - 36.5 SEC PROTIME INR (PT) Collection Time: 06/13/21 12:05 PM Result Value Ref Range INR 0.9 0.8 - 1.2 PERIPHERAL SMEAR Collection Time: 06/13/21 12:05 PM Result Value Ref Range Peripheral Smear NORMAL PERIPHERAL SMEAR. Pathologist Signature INTERPRETED BY ANG CHIN M.D. By the PATH SIGNATURE ABOVE, I attest that I have personally formulated the final interpretation expressed in this report and that the above diagnosis is based upon my examination of the slides and/or other material indicated in this report. PLATELET FUNCTION-PFA Collection Time: 06/13/21 12:06 PM Result Value Ref Range PFA, Collagen/Epinephrine 147 83 - 207 SECS PFA Collagen/ADP 89 68 - 142 SECS PFA Interpretation Normal platelet adhesion screen. Von Willebrand disease (type 1,2A,2B,2M,3) is very unlikely. This test is insensitive to platelet aggregation disorders, therefore platelet aggregation studies are recommended for further evaluation if clinically indicated. Pathologist Signature INTERPRETED BY ANG CHIN M.D. By the PATH SIGNATURE ABOVE, I attest that I have personally formulated the final interpretation expressed in this report and that the above diagnosis is based upon my examination of the slides and/or other material indicated in this report. Aleksandr De La Vega MD TROTYPE MOLDER documented in this encounter Miscellaneous Notes * Patient Instructions - Cristal Ortega RN - 06/17/2021 10:20 AM ELECTROTYPE MOLDER Your Care Team Dr. Aleksandr De La Vega [employer] Specialist Maye Rudd APRN Hematology Nurse Practitioner Clinical Nurse Coordinators (CNC's) Abhijeet Cunha [phone] BEULAH Pérez: [phone] Messages left on nurses' line are checked Sunday-Sunday 8:00 AM - 3:30PM Evening (after 3:30PM), weekend and holiday on-call [phone] For urgent needs after hours, please ask [...] prescription is there and ready for pickup. TROTYPE MOLDER documented in this encounter Plan of Treatment Not on filedocumented as of this encounter Visit Diagnoses Diagnosis Encounter to discuss test results - Jessica casarez Other specified counseling documented in this encounter Additional Health Concerns Noted Time Assessment 06/13/2021 10:33 AM ELECTROTYPE MOLDER A fall risk assessment has been complet ed for the patient documented as of this encounter Care Teams Start Date End Date Social Work Assistant Relationship Specialty 06/13/21 No Pcp, Na PCP - General 05/05/21 Laura Hasnon MD REFERRING Hematology & [facility] Oncology [place] [phone] documented as of this encounter
--- OUTSIDE RECORDS SUMMARY | 2021-06-26 21:30 | XMS REPORT | Clinical Summary ---
Author Author [facility] Organization [facility] Address Unknown Phone Unavailable Care Team Providers Care Geriatric Nursing Assistant Name Role Phone Praveen Olmedo DO PCP Allergies Comments Active Allergy Reactions Severity Noted Date Kenneth Inhibitors Cough 10/24/2015 Causes eyes to swell and inability to see Benzalkonium Chloride Anaphylaxis High 10/19/19 16 Tolerates morphine Codeine Anaphylaxis High 10/19/2015 Hydrocodone Anaphylaxis High 10/19/2015 Red Dye Anaphylaxis High 10/19/2015 Zdlqvqu-Qlz-Glr Reductase Rhabdomyolysi 10/19/2015 Inhibitors s, Myalgia Medications End Date Status Medication Sig Dispensed Refills Start Date Active nitroglycerin (NITROSTAT) Dissolve 1 30 tablet 3 0.4 MG SL tablet (0.4 6 tabletIndications: angina mg total) under the tongue every 5 (five) minutes as needed for chest pain. May repeat for a total of 3 doses. Active evolocumab (REPATHA Inject 420 mg 1 cartridge 11 PUSHTRONEX) 420 mg/3.5 mL under the 7 Injt skin every month. Active amLODIPine (NORVASC) 10 Take by mouth 0 MG tablet daily. 7 Active aspirin 81 MG EC tablet Take by mouth 0 daily. Active cyclobenzaprine Take by mouth 0 (FLEXERIL) 10 MG tablet 3 (three) times a day as needed. Active furosemide (LASIX) 40 MG Take 40 mg by 0 03/27 tablet mouth daily. 6 Active levothyroxine (SYNTHROID, Take 150 mcg 0 LEVOTHROID) 150 MCG by mouth tablet daily. Active pantoprazole (PROTONIX) Take 40 mg by 0 40 MG tablet mouth daily. 6 Active potassium chloride Take 20 mEq 0 (K-DUR,KLOR-CON) 20 MEQ by mouth 6 tablet daily. Active ranolazine (RANEXA) 1,000 Take 1,000 mg 0 11/0 3/201 mg SR tablet by mouth 2 6 (two) times a day. Active ticagrelor (BRILINTA) 90 Take 90 mg by 0 09/04 / mg Tab tablet mouth 2 (two) 7 times a day. Active traMADol (ULTRAM) 50 mg Take 50 mg by 0 tablet mouth every 6 6 (six) hours as needed. Active metoprolol succinate Take 1 tablet 90 tablet 0 (TOPROL-XL) 25 MG 24 hr (25 mg total) 7 tablet by mouth daily. Active nitroglycerin (NITROSTAT) Dissolve 1 30 tablet 0 0.4 MG SL tablet tablet (0.4 7 mg total) under the tongue every 5 (five) minutes as needed for chest pain. May repeat for a total of 3 doses. Active Problems Problem Noted Date Chest pain 02/19/2017 Atherosclerosis of zuni coronary artery of zuni h eart with angina 10/09/2016 pectoris S/P PTCA (percutaneous transluminal coronary angiopla sty) 04/28/2016 Statin intolerance 03/31/2016 History of non-ST elevation myocardial infarction (NS REGULO) 03/31/2016 Facioscapulohumeral muscular dystrophy 10/19/2015 Ischemic cardiomyopathy 10/19/2015 Acquired hypothyroidism 07/05/2015 Hypertension 07/10/2012 Atherosclerosis of zuni coronary denisha ry of zuni heart with angina pectoris Hyperlipidemia Resolved Problems Problem Noted Date Resolved Date Atelectasis 04/21/2016 04/28/2016 Retention of urine 04/21/2016 04/28/2016 Chest pain, atypical 04/07/2016 04/28/2016 NSTEMI, initial episode of care 10/19/20152015 History of coronary artery bypass surgery 07/03/2015 12/09/2015 Drug intolerance 05/27/2015 12/09/2015 Left ventricular diastolic dysfunction 05/22/2015 12/09/2015 Tobacco use 05/20/2015 12/09/2015 Dyslipidemia 07/10/2012 12/09/2015 Gastroesophageal reflux disease 07/10/20122015 Vitamin D deficiency 12/14/2011 12/09/2015 COPD (chronic obstructive pulmonary disease) 2015 Adrenal cortex insufficiency 04/28/2016 Immunizations Name Administration Dates Next Due Pneumococcal 10/19/2015 Polysaccharide 23-Valent Family History Medical History Relation Name Comments Diabetes Brother 1 Hyperlipidemia Brother 1 Hypertension Brother 2 Coronary artery disease Father Diabetes Father Kidney failure Father Coronary artery disease Mother Diabetes Mother Thyroid disease Sister Relation Name Status Comments Brother 1 Alive Brother 2 Alive Father DM, CAD, renal fail ure Mother DM, CAD Sister Alive Social History Date Tobacco Use Types Packs/Day Years Used Quit: 05/20/2015 Former Smoker Cigarettes 1 25 Smokeless Tobacco: Never Used Tobacco Cessation: Counseling Given: No Comments Alcohol Use Standard Drinks/Week occasionally Yes 0 (1 standard drink = 0.6 o z pure alcohol) Alcohol Habits Answer Date Recorded How often do you have a drink containing alcohol? No t asked How many drinks containing alcohol do you have on No t asked a typical day when you are drinking? How often do you have six or more drinks on one Not asked occasion? Comment: occasionally 03/17/2016 Sex Assigned at Date Recorded Not on file Last Filed Vital Signs Reading Time Taken Comments Vital Sign 115/61 02/20/2017 3:37 PM CDT Blood Pressure 75 02/20/2017 3:37 PM CDT Pulse 36.8 C (98.3 F) 02/20/2017 3:37 PM CDT Temperature 16 02/20/2017 3:37 PM CDT Respiratory Rate 98% 02/20/2017 3:37 PM CDT Oxygen Saturation - - Inhaled Oxygen Concentration 81.6 kg (180 lb) 02/19/2017 5:53 PM CDT Weight 147.3 cm (4' 10") 02/19/2017 5:53 PM CDT Height 37.62 02/19/2017 5:53 PM CDT Body Mass Index Plan of Treatment Health Maintenance Due Date Last Done Comments Td/Tdap# 1965 Cervical Cancer Screening 1988 via Pap Smear Zoster Vaccine# (1 of 2) 2017 Influenza Vaccine (#1) 2021 05/18/2016 Pneumococcal Vaccine: Aged Out 10/19/2015 No longe r eligible based on patient's age to Pediatrics (0 to 5 Years) complete this topic and At-Risk Patients (6 to 64 Years) Results Not on filefrom Last 3 Months Insurance Type Payer Benefit Subscriber ID Effective Phone Address Plan / Dates Group Indemnity [employer] [id number] 2015- [phone] [place] [address] MEDICARE REPLACEMENT PLAN [facility] [id number] 2016-P [phone] [address] MEDICARE resent [address] [place], [place] CHOICE [address] [place] ([place]) [place] [phone] Sweet,Dalia E Personal/F Self [address] [place]) [place] [phone] Sweet,Daila E Personal/F Self 1965 [address] [place] ([place]) [place] [phone] Advance Directives For more information, please contact: [phone] 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
[2021-06-26] MEDS ORDERED: ENOXAPARIN 80 MG/0.8 ML (LOVENOX) SYR SC ONE (23:00)
[2021-06-27] VITALS (26 sets, daily range): BP systolic 104–170; BP diastolic 41–103
[2021-06-27] MEDS: ONDANSETRON 4 MG/2 ML (SDV) Z0FRAN IV PRN ×3 (02:04→22:11)
[2021-06-27 05:22] LABS: BASOPHILS % (AUTO) 0 % (0-10); EOSINOPHILS # (AUTO) 0.1 10^3/uL (0.0-0.3); EOSINOPHILS % (AUTO) 2 % (0-10); HEMATOCRIT 34 % (35-52); HEMOGLOBIN 11.2 g/dL (11.5-16.0); LYMPHOCYTES # (AUTO) 1.2 10^3/uL (1.0-4.0); LYMPHOCYTES % (AUTO) 27 % (12-44); MEAN CORPUSCULAR HEMOGLOBIN 32 pg (25-34); MEAN CORPUSCULAR HGB CONC 33 g/dL (32-36); MEAN CORPUSCULAR VOLUME 96 fL (80-99); MEAN PLATELET VOLUME 10.8 fL (9.0-12.2); MONOCYTES # (AUTO) 0.3 10^3/uL (0.0-1.0); MONOCYTES % (AUTO) 6 % (0-12); NEUTROPHILS # (AUTO) 2.9 10^3/uL (1.8-7.8); NEUTROPHILS % (AUTO) 65 % (42-75); PLATELET COUNT 158 10^3/uL (130-400); WHITE BLOOD COUNT 4.5 10^3/uL (4.3-11.0)
[2021-06-27 05:33] LABS: CHLORIDE 108 MMOL/L (98-107); POTASSIUM 3.6 MMOL/L (3.6-5.0); SODIUM 141 MMOL/L (135-145)
[2021-06-27 05:35] LABS: GLUCOSE 121 MG/DL (70-105)
[2021-06-27 05:36] LABS: CARBON DIOXIDE 22 MMOL/L (21-32)
[2021-06-27 05:39] LABS: CREATININE SERUM 0.51 MG/DL (0.60-1.30); GFR ESTIMATED 126
[2021-06-27 05:40] LABS: BUN/CREATININE RATIO 12
[2021-06-27] MEDS: CATHETER FLUSH 10 ML SYR IV PRN ×2 (08:28→08:59)
[2021-06-27] MEDS ORDERED: REGADENOSON 0.4 MG/5 ML SYR (LEXISCAN) IV ONE ×2 (08:30→09:07)
--- NOTE | 2021-06-27 08:41 | Consultation-Cardiology ---
HPI-Cardiology Cardiology Consultation Date of Consultation 06/27/21 Date of Admission Time Seen by Provider: 08:37 Indication: Chest pain HPI 56-year-old lady with history of muscular dystrophy, coronary artery disease, hypertension and hyperlipidemia. Started to have chest pain yesterday described it as dull in nature on the left upper side of her chest associated with nausea, vomited once. Came in to the emergency room and noted to have slight elevation in troponin at [place] emergency room. She was transferred to our facility. She still having waxing and waning chest pain, reported that she is scheduled for endoscopy later this week. Her cardiac enzymes in our hospital has been negative. Home Medications & Allergies Allergies: Coded Allergies: codeine (Unverified Allergy, Severe, anaphylaxis, 06/26/21) PER PATIENT REPORT red dye (Unverified Allergy, Severe, anaphylaxis, 06/26/21) PER PATIENT REPORT Home Medication List Reviewed: Yes HUE-Edovfi-Hemqcq Hx Patient Social History Marital Status: Employed/Student: retired Smoking Status: Former Smoker Have you traveled recently?: No Alcohol Use?: Yes Past Medical History Discussed below Family Medical History Family Medical Hx Noncontributory Review of Systems-General Review of Systems Constitutional: no symptoms reported, see HPI EENTM: see HPI, no symptoms reported Respiratory: see HPI; No cough; dyspnea on exertion; No hemoptysis, No orthopnea, No phlegm, No short of breath, No stridor, No wheezing, No other Cardiovascular: see HPI, chest pain; No edema, No Hx of Intervention, No palpitations, No syncope, No vascular heart diseas, No other Gastrointestinal: see HPI, diarrhea, nausea, vomiting Genitourinary: no symptoms reported, see HPI Musculoskeletal: no symptoms reported, see HPI Skin: no symptoms reported, see HPI Psychiatric/Neurological: No Symptoms Reported, See HPI Reviewed Test Results Reviewed Test Results Lab Laboratory Tests Test 06/26/21 21:45 06/27/21 05:12 Range/Units Troponin I < 0.028 < 0.028 <0.028 NG/ML White Blood Count 4.5 4.3-11.0 10^3/uL Red Blood Count 3.49 L 3.80-5.11 10^6/uL Hemoglobin 11.2 L 11.5-16.0 g/dL Hematocrit 34 L 35-52 % Mean Corpuscular Volume 96 80-99 fL Mean Corpuscular Hemoglobin 32 25-34 pg Mean Corpuscular Hemoglobin Concent 33 32-36 g/dL Red Cell Distribution Width 11.9 10.0-14.5 % Platelet Count 158 130-400 10^3/uL Mean Platelet Volume 10.8 9.0-12.2 fL Immature Granulocyte % (Auto) 0 % Neutrophils (%) (Auto) 65 42-75 % Lymphocytes (%) (Auto) 27 12-44 % Monocytes (%) (Auto) 6 0-12 % Eosinophils (%) (Auto) 2 0-10 % Basophils (%) (Auto) 0 0-10 % Neutrophils # (Auto) 2.9 1.8-7.8 10^3/uL Lymphocytes # (Auto) 1.2 1.0-4.0 10^3/uL Monocytes # (Auto) 0.3 0.0-1.0 10^3/uL Eosinophils # (Auto) 0.1 0.0-0.3 10^3/uL Basophils # (Auto) 0.0 0.0-0.1 10^3/uL Immature Granulocyte # (Auto) 0.0 0.0-0.1 10^3/uL Sodium Level 141 135-145 MMOL/L Potassium Level 3.6 3.6-5.0 MMOL/L Chloride Level 108 H 98-107 MMOL/L Carbon Dioxide Level 22 21-32 MMOL/L Anion Gap 11 5-14 MMOL/L Blood Urea Nitrogen 6 L 7-18 MG/DL Creatinine 0.51 L 0.60-1.30 MG/DL Estimat Glomerular Filtration Rate 126 BUN/Creatinine Ratio 12 Glucose Level 121 H 70-105 MG/DL Calcium Level 8.0 L 8.5-10.1 MG/DL Physical Exam Physical Exam Vital Signs Vital Signs - First Documented 06/26/21 06/26/21 06/26/21 21:27 21:30 21:51 Temp 37.2 Pulse 81 Resp 19 B/P (MAP) 129/73 (93) Pulse Ox 96 O2 Delivery Room Air Capillary Refill : Height, Weight, BMI Height: '" Weight: lbs. oz. kg; 31.98 BMI Method: General Appearance: No Apparent Distress, WD/WN Eyes: Bilateral Eye Normal Inspection, Bilateral Eye PERRL, Bilateral Eye EOMI HEENT: PERRL/EOMI, TMs Normal, Normal ENT Inspection, Pharynx Normal, Moist Mucous Membranes Neck: Full Range of Motion, Normal Inspection, Non Tender, Supple, Carotid Bruit Respiratory: Chest Non Tender, Normal Breath Sounds, No Accessory Muscle Use, No Respiratory Distress Cardiovascular: Regular Rate, Rhythm, No Edema, No Gallop, No JVD, No Murmur, Normal Peripheral Pulses Gastrointestinal: Normal Bowel Sounds, No Organomegaly, No Pulsatile Mass, Non Tender, Soft Back: Normal Inspection, No CVA Tenderness, No Vertebral Tenderness Extremity: Normal Capillary Refill, Normal Inspection, Normal Range of Motion, Non Tender, No Calf Tenderness, No Pedal Edema Neurologic/Psychiatric: Alert, Oriented x3, No Motor/Sensory Deficits, Normal Mood/Affect Skin: Normal Color, Warm/Dry Lymphatic: No Adenopathy A/P-Cardiology Admission Diagnosis Chest pain Coronary artery disease Hypertension Hyperlipidemia Assessment/Plan Chest pain, atypical in presentation, extensive cardiac history, cardiac enzymes were negative. I am planning to evaluate stress test Coronary artery disease, history of CABG in the past, had myocardial infarction in February 2021 resulted in a stent placement, does not know exactly where it was placed. Has been following with cardiology service in [place] Gastroesophageal reflux disease, esophagitis, has been having chest pain for a while, had nausea and vomiting, planning to start PPI, scheduled to see Dr. Kelly in [place] for possible endoscopy Hypertension, restart home medication and monitor blood pressure Hyperlipidemia, monitor lipids Ex tobaccoism, stopped smoking in February 2021, encouraged to continue smoking cessation History of muscular dystrophy. JOSE ALBRECHT MD Jun 27, 2021 08:41
[2021-06-27] MEDS ORDERED: ONDANSETRON 4 MG/2 ML (SDV) Z0FRAN ONE ×2 (09:53→15:56)
[2021-06-27] MEDS: ASPIRIN 81 MG CHEW (CHILDREN'S ASA) PO SCH (11:39)
[2021-06-27] MEDS: ENOXAPARIN 80 MG/0.8 ML (LOVENOX) SYR SC SCH ×2 (11:40→20:22)
[2021-06-27] MEDS: DOCUSATE SODIUM 100 MG (COLACE) CAP PO SCH ×2 (11:40→21:31)
[2021-06-27] MEDS: SENNOSIDES 8.6 MG (SENOKOT) TAB PO SCH ×2 (11:41→21:31)
--- NOTE | 2021-06-27 11:44 | Cardiology Stress Test Report ---
Stress Test Report Date of Procedure/Referring: Date of Procedure: Jun 27, 2021 PCP Sasha Shields MD Admitting Physician No,Local Physician Indications: CP Baseline Heart Rate: 72 Baseline Blood Pressure: Blood Pressure Systolic: 145 Blood Pressure Diastolic: 41 Baseline Vitals Vital Signs Date Time Temp Pulse Resp B/P (MAP) Pulse Ox O2 Delivery O2 Flow Rate FiO2 06/26/21 21:27 81 06/26/21 21:30 19 129/73 (93) 96 Room Air 06/26/21 21:51 37.2 Baseline EKG: Baseline EKG: NSR Summary After explaining the procedure to the patient, she signed a consent and then brought to the stress nuclear laboratory. Patient received 0.4 mg Lexiscan for stress test, ECG, heart rate and blood pressure were monitored continuously. Resting and stress dose of radio tracer were injected, imaging was acquired and reviewed in short axis, horizontal long axis and vertical long axis views. TID: 0.98 SSS: 12 SDS: 7 EF: 76 1. Patient tolerated Lexiscan well 2. Nonspecific T wave abnormality noted in the anterior leads. No acute EKG changes 3. Breast and diaphragmatic attenuation, mild decrease uptake involving the mid to apical inferolateral wall with mild reversibility 4. Normal left ventricular size, EF 76% JOSE ALBRECHT MD Jun 27, 2021 11:44
--- NOTE | 2021-06-27 13:17 | History & Physical-Hospitalist ---
History of Present Illness HPI/Chief Complaint Dalia Dey is a 56 year old female with PMH HTN, HLD, GERD, depression, hypothyroidism, CAD, who presented as a transfer from [facility] with chest pain. She reports pressure in the center of her chest. She says it is similar to her previous heart attacks. She had some pain radiating to her left shoulder. She is not currently having pain. She had associated shortness of breath, nausea, and vomiting. She denies fevers and chills. She denies abdominal pain. She had some diarrhea before her symptoms started. She last had a heart cath in February and had a stent placed. Source: patient Exam Limitations: no limitations Date Seen 06/27/21 Time Seen by a Provider: 11:25 Attending Physician Sasha Phoenix MD PCP No,Local Physician Referring Physician Date of Admission Jun 26, 2021 at 21:21 Home Medications & Allergies Home Medications Reviewed patient Home Medication Reconciliation performed by pharmacy medication reconciliations hydroelectric systems technician and/or nursing. Patients Allergies have been reviewed. Allergies Allergies Coded Allergies codeine (Unverified Allergy, Severe, anaphylaxis, 06/26/21) PER PATIENT REPORT red dye (Unverified Allergy, Severe, anaphylaxis, 06/26/21) PER PATIENT REPORT Past [id number]-[id number] Hx Patient Social History Marrital Status: Employed/Student: retired Tobacco Use?: No Smoking Status: Former Smoker Use of E-Cig and/or Vaping dev: No Substance use?: No Alcohol Use?: Yes Alcohol Frequency: Rarely Additional Alcohol Comments: "3 TIMES THIS YEAR" Pt feels they are or have been: No Immunizations Up To Date Tetanus Booster (TDap): Unknown Hepatitis A: No Hepatitis B: No Current Status status: No status: No Advance Directives: No Communicates: Verbally Primary Language: Turkish Preferred Spoken Language: Turkish Is interpretation needed?: No Sensory deficits: Vision impairment Implanted or Applied Medical D: None Family Medical History No Pertinent Family Hx Review of Systems Constitutional: no symptoms reported EENTM: no symptoms reported Respiratory: short of breath Cardiovascular: chest pain Gastrointestinal: nausea, vomiting Genitourinary: no symptoms reported Musculoskeletal: no symptoms reported Skin: no symptoms reported Psychiatric/Neurological: No Symptoms Reported Physical Exam Physical Exam Vital Signs Vital Signs - First Documented 06/26/21 06/26/21 06/26/21 21:27 21:30 21:51 Temp 37.2 Pulse 81 Resp 19 B/P (MAP) 129/73 (93) Pulse Ox 96 O2 Delivery Room Air Capillary Refill : Height, Weight, BMI Height: '" Weight: lbs. oz. kg; 31.98 BMI Method: General Appearance: No Apparent Distress, Obese HEENT: PERRL/EOMI, Pharynx Normal Neck: Normal Inspection, Supple Respiratory: Lungs Clear, Normal Breath Sounds, No Respiratory Distress Cardiovascular: Regular Rate, Rhythm, No Edema, No Murmur Gastrointestinal: Normal Bowel Sounds, Non Tender, Soft Extremity: Normal Inspection, Non Tender, No Pedal Edema Neurologic/Psychiatric: Alert, Oriented x3, No Motor/Sensory Deficits Skin: Normal Color, Warm/Dry Results Results/Procedures Labs Laboratory Tests 06/27/21 05:12 Patient resulted labs reviewed. Assessment/Plan Admission Diagnosis NSTEMI Admission Status: Inpatient Order (span 2 midnights) Reason for Inpatient Admission: NSTEMI requiring cardiology intervention Assessment and Plan NSTEMI CAD Troponin mildly elevated at Simon EKG with T wave inversions, unchanged Cardiology consulted Given ASA, continue daily Therapeutic Lovenox Repeat troponins negative Stress test positive Proceeding with left heart cath today HTN HLD GERD Depression Hypothyroidism Obesity Continue home meds once med rec completed Diagnosis/Problems Diagnosis/Problems (1) NSTEMI (non-ST elevation myocardial infarction) Status: Acute (2) CAD (coronary artery disease) Status: Acute (3) HTN (hypertension) Status: Chronic (4) HLD (hyperlipidemia) Status: Chronic (5) GERD (gastroesophageal reflux disease) Status: Chronic (6) Depression Status: Chronic (7) Obesity Status: Chronic SASHA PHOENIX MD Jun 27, 2021 13:17
[2021-06-27] MEDS ORDERED: LIDOCAINE 1% INJ 20 ML 20 ML VIAL ONE (13:27)
[2021-06-27] MEDS ORDERED: HEParin (CATH LAB) 2,000 ML IV ONE (13:27)
[2021-06-27] MEDS ORDERED: NS IV 1000 ML 1,000 ML ONE (13:27)
[2021-06-27] MEDS ORDERED: DULO20CA19 PO (14:36)
[2021-06-27] MEDS ORDERED: ROSU20TA32 PO (14:36)
[2021-06-27] MEDS ORDERED: PANT40TA52 PO (14:36)
[2021-06-27] MEDS ORDERED: BUPR300T98 PO (14:36)
[2021-06-27] MEDS ORDERED: LEVO-130 PO (14:36)
[2021-06-27] MEDS ORDERED: ESTR0.5T (14:36)
[2021-06-27] MEDS ORDERED: ACET-2267 PO (14:36)
[2021-06-27] MEDS ORDERED: NORT25CA PO (14:36)
[2021-06-27] MEDS ORDERED: PRAS10TA10 PO (14:36)
[2021-06-27] MEDS ORDERED: METO-333 PO (14:36)
[2021-06-27] MEDS ORDERED: ASCO-262 PO (14:36)
[2021-06-27] MEDS ORDERED: NITR0.4T42 SL (14:40)
[2021-06-27] MEDS ORDERED: ASPI-1238 PO (14:40)
[2021-06-27] MEDS ORDERED: VERAPAMIL 5 MG/2 ML (CALAN) VIAL IV ONE (15:17)
[2021-06-27] MEDS ORDERED: MIDAZOLAM 5 MG/5 ML (VERSED) VIAL ONE (15:17)
[2021-06-27] MEDS ORDERED: fentaNYL INJ 100 MCG/2 ML AMP ONE (15:17)
[2021-06-27] MEDS ORDERED: NITRO DRIP 25000 MCG/D5W 0 ML IV ONE (15:18)
[2021-06-27] MEDS ORDERED: HEParin 1000 UNIT/ML (10ML VIAL) FOR BOLUS ONE (15:18)
--- NOTE | 2021-06-27 16:41 | Cardiac Cath Report ---
Cardiac Cath Report Physician (s)/Clinic Licensed Practical Nurse (s) Physician JOSE ALBRECHT MD Pre-Procedure Diagnosis Pre-Procedure Diagnosis: Coronary artery disease Post-Procedure Note Procedure Start Date: Jun 27, 2021 Name of Procedure: Left heart catheterization Vein graft angiogram JENKINS angiogram Stent to the vein graft to the circumflex artery Findings/Procedure Note PROCEDURE NOTE: 56-year-old lady with extensive cardiac history history of CABG, recent myocar dial infarction, admitted with acute chest pain, underwent stress test which was abnormal and scheduled for cardiac catheterization possible PTCA After explaining the procedure to the patient, all pros and cons were explained, all questions were answered. The patient signed the consent and then she was placed on the cardiac catheterization laboratory. Groin was prepped SL fashion local anesthesia was used. Sheath placed in the right femoral artery. Keyshawn right and left catheter were used to access the coronary system.Vein Graft evaluated. JENKINS evaluated. JR was used to access the left ventricular cavity. Left ventriculogram was not done, pressure was measured Patient has severe stenosis in the vein graft to the circumflex artery, given 5000 units of heparin, Keyshawn right guide was advanced and a BMW wire was advanced and parked distally, primary stenting using skypoint stent 3.5 x 23 mm deployed under 16 nadira up to 3.7 mm with excellent results. At the end of the procedure the sheath was removed. Closure device was deployed FINDINGS: Hemodynamics LV 116/6, end-diastolic pressure of 6 Aorta 117/61 mean of 86 ANATOMY: Left Main is free of obstructive disease Left Anterior Descending is occluded at the midportion, vein graft to the LAD is patent with small vessel disease distally Left Circumflex is occluded proximally, vein graft to the obtuse marginal branch has moderate to severe stenosis at the midportion successful primary stenting using skypoint stent 3.5 x 23 expanded to 3.7 mm with excellent results Right Coronary Artery has a patent stent in the midportion with mild in-stent restenosis JENKINS is small and atretic, free JENKINS Vein Graft angiogram showed 2 vein graft Vein graft to the obtuse marginal branch has severe stenosis with successful stenting as described above with excellent results Vein graft to the LAD is patent with excellent flow to the LAD, the distal LAD has small vessel disease LV Gram was not done, pressure was measured CONCLUSION: 1. Severe [place] coronary artery disease with total occlusion of the mid LAD and proximal circumflex artery, patent vein graft to the LAD with severe stenosis in the vein graft to the circumflex artery with successful primary stenting using skypoint stent 3.5 x 23 mm expanded to 3.7 mm with excellent results. Patent stent in the mid right coronary artery with mild in-stent restenosis. 2. Normal left ventricular end-diastolic pressure DISCUSSION AND RECOMMENDATION: Patient has been maintained on aspirin and Effient which will be continued at this point. Anesthesia Type: Conscious Sedation Estimated blood loss (mL): 25 ml Contrast Amount: 95 ml Total Radiation Dose: 511 mGy Post-Procedure Diagnosis Post-operative diagnosis: Chest pain Coronary artery disease Hypertension Hyperlipidemia JOSE ALBRECHT MD Jun 27, 2021 16:41
[2021-06-27] MEDS ORDERED: PATIENT MAY USE OWN MEDS, ALL PO SCH (16:45)
[2021-06-27] MEDS ORDERED: PRASUGREL 10 MG (EFFIENT) TABLET ONE (16:52)
[2021-06-27] MEDS ORDERED: ASPIRIN 325 MG (5 GR) TABLET ONE (16:52)
[2021-06-27] MEDS ORDERED: oxyCODONE/APAP 5/325MG (PERCOCET 5) TABLET ONE (17:22)
[2021-06-27] MEDS: oxyCODONE/APAP 5/325MG (PERCOCET 5) TABLET PO PRN (17:24)
[2021-06-27] MEDS: NS IV 1000 ML 1,000 ML IV SCH ×2 (17:28→20:22)
[2021-06-27] MEDS ORDERED: morphine INJ 10 MG/ML 1ML (SYR OR VIAL) IVP STA ×2 (18:17→19:33)
[2021-06-27] MEDS ORDERED: morphine INJ 4 MG/ML 1 ML (VIAL/SYRINGE) ONE (20:05)
[2021-06-27] MEDS ORDERED: morphine INJ 4 MG/ML 1 ML (VIAL/SYRINGE) IVP ONE (20:15)
[2021-06-27] MEDS: meTOprolol TARTRATE 25 MG (LOPRESSOR) TABLET PO SCH (20:21)
[2021-06-28] VITALS (7 sets, daily range): BP systolic 107–139; BP diastolic 69–77
[2021-06-28] MEDS: oxyCODONE/APAP 5/325MG (PERCOCET 5) TABLET PO PRN (03:50)
[2021-06-28 04:09] LABS: HEMATOCRIT 30 % (35-52); HEMOGLOBIN 9.9 g/dL (11.5-16.0); MEAN CORPUSCULAR HEMOGLOBIN 32 pg (25-34); MEAN CORPUSCULAR HGB CONC 33 g/dL (32-36); MEAN CORPUSCULAR VOLUME 97 fL (80-99); MEAN PLATELET VOLUME 10.6 fL (9.0-12.2); PLATELET COUNT 162 10^3/uL (130-400); WHITE BLOOD COUNT 5.3 10^3/uL (4.3-11.0)
[2021-06-28 04:21] LABS: POTASSIUM 3.6 MMOL/L (3.6-5.0)
[2021-06-28 04:26] LABS: CREATININE SERUM 0.53 MG/DL (0.60-1.30)
[2021-06-28] MEDS: NS IV 1000 ML 1,000 ML IV SCH (06:37)
[2021-06-28] MEDS: ROSUVASTATIN 20 MG (CRESTOR) TABLET PO SCH ×2 (08:08→08:19)
[2021-06-28] MEDS: meTOprolol TARTRATE 25 MG (LOPRESSOR) TABLET PO SCH (08:08)
[2021-06-28] MEDS: SENNOSIDES 8.6 MG (SENOKOT) TAB PO SCH (08:09)
[2021-06-28] MEDS: DOCUSATE SODIUM 100 MG (COLACE) CAP PO SCH (08:09)
[2021-06-28] MEDS: ASPIRIN 81 MG CHEW (CHILDREN'S ASA) PO SCH (08:09)
[2021-06-28] MEDS: ENOXAPARIN 80 MG/0.8 ML (LOVENOX) SYR SC SCH (08:09)
[2021-06-28] MEDS ORDERED: PRASUGREL 10 MG (EFFIENT) TABLET PO SCH ×2 (09:00)
[2021-06-28] MEDS ORDERED: PANTOPRAZOLE 40 MG (PROTONIX) TAB PO SCH (09:00)
[2021-06-28] MEDS ORDERED: ASPIRIN E.C. 81 MG (ECOTRIN) TAB PO SCH (09:00)
--- NOTE | 2021-06-28 09:57 | Cardiology Progress Note ---
Subjective Date Seen by Provider: Jun 28, 2021 Time Seen by Provider: 09:54 Subjective/Events-last exam Patient was seen at bedside, feeling better, groin is healing well. No new complaint Review of Systems General: No Chills, No Night Sweats, No Fatigue, No Malaise, No Appetite, No Other HEENT: No Head Aches, No Visual Changes, No Eye Pain, No Ear Pain, No Dysphas ia, No Sinus Congestion, No Post Nasal Drip, No Sore Throat, No Other Pulmonary: No Dyspnea, No Cough, No Pleuritic Chest Pain, No Other Cardiovascular: No: Chest Pain, Palpitations, Orthopnea, Paroxysmal Noc. Dyspnea, Edema, Lt Headedness, Other Objective-Cardiology Exam Last Set of Vital Signs Vital Signs 06/28/21 08:21 Pulse Ox 98 O2 Delivery Room Air I&O Intake and Output 06/28/21 00:00 Intake Total 0 ml Output Total 150 ml Balance -150 ml Intake Oral 0 ml Output Urine Total 150 ml # Voids 4 General: Alert, Oriented X3, Cooperative HEENT: Atraumatic, PERRLA Neck: Supple, No JVD, No Thyromegaly Lungs: Clear to Auscultation, Normal Air Movement Heart: Regular Rate, Normal S1, Normal S2, No Murmurs Abdomen: Normal Bowel Sounds, Soft, No Tenderness, No Hepatosplenomegaly, No Masses Extremities: No Clubbing, No Cyanosis, No Edema, Normal Pulses, No Tenderness/Swelling Skin: No Rashes, No Breakdown, No Significant Lesion Neuro: Normal Gait, Normal Speech, Strength at 5/5 X4 Ext, Normal Tone, Se nsation Intact Psych/Mental Status: Mental Status NL, Mood NL Results Lab Laboratory Tests 06/28/21 03:56 A/P-Cardiology Admission Diagnosis Chest pain Coronary artery disease Hypertension Hyperlipidemia Assessment/Plan Chest pain, abnormal stress test, cath and stent done, doing well, no further cp reported Coronary artery disease, history of CABG in the past, had myocardial infarction in February 2021 resulted in a stent placement, does not know exactly where it was placed. Has been following with cardiology service in [place] cardiac cath 06/27/21: 1. Severe [place] coronary artery disease with total occlusion of the mid LAD and proximal circumflex artery, patent vein graft to the LAD with severe stenosis in the vein graft to the circumflex artery with successful primary stenting using skypoint stent 3.5 x 23 mm expanded to 3.7 mm with excellent results. Patent stent in the mid right coronary artery with mild in-stent restenosis. 2. Normal left ventricular end-diastolic pressure Gastroesophageal reflux disease, esophagitis, has been having chest pain for a while, had nausea and vomiting, planning to start PPI, scheduled to see Dr. Carver in [place] for possible endoscopy Hypertension, continue current meds Hyperlipidemia, monitor lipids Ex tobaccoism, stopped smoking in February 2021, encouraged to continue smoking cessation History of muscular dystrophy. Ok for discharge and follow up with primary beam doffer JOSE ALBRECHT MD Jun 28, 2021 09:57
--- NOTE | 2021-06-28 13:18 | Discharge Summary ---
Discharge Summary Hospital Course Was the Problem List Reviewed?: Yes Problems/Dx: (1) NSTEMI (non-ST elevation myocardial infarction) Status: Acute (2) CAD (coronary artery disease) Status: Acute Qualifiers: Qualified Codes: I25.700 - Atherosclerosis of coronary artery bypass graft(s), unspecified, with unstable angina pectoris (3) HTN (hypertension) Status: Chronic (4) HLD (hyperlipidemia) Status: Chronic (5) GERD (gastroesophageal reflux disease) Status: Chronic (6) Depression Status: Chronic (7) Obesity Status: Chronic Hospital Course Date of Admission: Jun 26, 2021 at 21:21 Admission Diagnosis : NSTEMI Family Physician/Provider: AnnLocal Physician Date of Discharge: 06/28/21 Discharge Diagnosis: Unstable angina Hospital Course: Dalia Dey is a 56 year old female with PMH CAD s/p CABG and coronary artery stents who presented with chest pain. Cardiology was consulted and assisted with her care. Her troponin was initially slightly elevated at the outside facility. After transfer her troponins remained within normal limits. She underwent a stress test which was positive. She subsequently underwent a lef t heart catheterization which revealed an occlusion in her bypass graft to the LAD. She had a coronary stent placed. She was continued on Aspirin and Prasugrel. She should follow up with her PCP and primary storekeeper helper in a couple weeks. She was discharged home in stable condition. Labs and Pending Lab Test: Laboratory Tests 06/28/21 03:56: White Blood Count 5.3, Red Blood Count 3.09L, Hemoglobin 9.9L, Hematocrit 30L, Mean Corpuscular Volume 97, Mean Corpuscular Hemoglobin 32, Mean Corpuscular Hemoglobin Concent 33, Red Cell Distribution Width 12.0, Platelet Count 162, Mean Platelet Volume 10.6, Sodium Level 141, Potassium Level 3.6, Chloride Level 111H, Carbon Dioxide Level 20L, Anion Gap 10, Blood Urea Nitrogen 4L, Creatinine 0.53L, Estimat Glomerular Filtration Rate 120, BUN/Creatinine Ratio 8, Glucose Level 102, Calcium Level 8.0L Home Meds Active Reported Aspirin EC (Aspirin) 81 Mg Tablet.dr 81 Mg PO DAILY Nitroglycerin 0.4 Mg Tab.subl 0.4 Mg SL UD PRN Vitamin C (Ascorbate Calcium) 500 Mg Tablet 500 Mg PO DAILY Tylenol Extra Strength (Acetaminophen) 500 Mg Tablet 500-1,000 Mg PO Q8H PRN Metoprolol Tartrate 25 Mg Tablet 12.5 Mg PO BID TAKES OF A 25MG TAB Prasugrel HCl 10 Mg Tablet 10 Mg PO DAILY Rosuvastatin Calcium 20 Mg Tablet 40 Mg PO DAILY TAKES 2 (20MG) TABS Nortriptyline HCl 25 Mg Capsule 25 Mg PO DAILY Pantoprazole Sodium 40 Mg Tablet.dr 40 Mg PO DAILY Estradiol Tablet (Estradiol) 0.5 Mg Tablet 0.5 Mg MO,WE,FR Duloxetine HCl 20 Mg Capsule.dr 20 Mg PO DAILY Bupropion Xl (Bupropion HCl) 300 Mg Tab.er.24h 300 Mg PO DAILY Euthyrox (Levothyroxine Sodium) 100 Mcg Tablet 100 Mcg PO DAILY Assessment/Pt Instructions See instructions Discharge Planning: <30 minutes discharge planning Discharge Instructions Discharge Diet: Low Sodium Diet Activity as Tolerated: Yes Discharge Physical Examination Vital Signs Vital Signs Date Time Temp Pulse Resp B/P (MAP) Pulse Ox O2 Delivery O2 Flow Rate FiO2 06/28/21 08:21 98 Room Air 06/28/21 08:00 36.6 88 19 125/70 (88) General Appearance: No Apparent Distress, Obese Respiratory: Lungs Clear, Normal Breath Sounds, No Respiratory Distress Cardiovascular: Regular Rate, Rhythm, No Edema, No Murmur Gastrointestinal: Normal Bowel Sounds, Non Tender, Soft Extremity: Normal Inspection, Non Tender, No Pedal Edema Skin: Normal Color, Warm/Dry Neurologic/Psychiatric: Alert, Oriented x3, No Motor/Sensory Deficits Allergies: Coded Allergies: codeine (Unverified Allergy, Severe, anaphylaxis, Pt can take Percocet, 06/27/21) PER PATIENT REPORT red dye (Unverified Allergy, Severe, anaphylaxis, 06/26/21) PER PATIENT REPORT Discharge Summary Date of Admission Jun 26, 2021 at 21:21 Date of Discharge Jun 28, 2021 at 10:10 Discharge Date: Jun 28, 2021 Discharge Time: 10:10 Admission Diagnosis NSTEMI Discharge Diagnosis Unstable angina (1) NSTEMI (non-ST elevation myocardial infarction) Status: Acute (2) CAD (coronary artery disease) Status: Acute Qualifiers: Qualified Codes: I25.700 - Atherosclerosis of coronary artery bypass graft(s), unspecified, with unstable angina pectoris (3) HTN (hypertension) Status: Chronic (4) HLD (hyperlipidemia) Status: Chronic (5) GERD (gastroesophageal reflux disease) Status: Chronic (6) Depression Status: Chronic (7) Obesity Status: Chronic MODE PHOENIX MD Jun 28, 2021 13:17
== END 2021-06-28 10:10 | disposition home or self-care (01) | DRG 247 ==
LOC: CSD 21:21
PROVIDERS: ADMIT Internal Medicine; ATTEND Internal Medicine
PROC: 4A023N7 Measurement of Cardiac Sampling and Pressure, Left Heart, Percutaneous Approach (ICD-10-PCS; principal; 2021-06-27)
PROC: 027034Z Dilation of Coronary Artery, One Artery with Drug-eluting Intraluminal Device, Percutaneous Approach (ICD-10-PCS; 2021-06-27)
PROC: B2111ZZ Fluoroscopy of Multiple Coronary Arteries using Low Osmolar Contrast (ICD-10-PCS; 2021-06-27)
PROC: B2181ZZ Fluoroscopy of Left Internal Mammary Bypass Graft using Low Osmolar Contrast (ICD-10-PCS; 2021-06-27)
PROC: B2131ZZ Fluoroscopy of Multiple Coronary Artery Bypass Grafts using Low Osmolar Contrast (ICD-10-PCS; 2021-06-27)
DX: I21.4 Non-ST elevation (NSTEMI) myocardial infarction (principal); I25.700 Atherosclerosis of coronary artery bypass graft(s), unspecified, with unstable angina pectoris; I10 Essential (primary) hypertension; E78.5 Hyperlipidemia, unspecified; F32.A Depression, unspecified; E03.9 Hypothyroidism, unspecified; Z87.891 Personal history of nicotine dependence; E66.9 Obesity, unspecified; Z68.32 Body mass index [BMI] 32.0-32.9, adult; Z95.1 Presence of aortocoronary bypass graft; G71.00 Muscular dystrophy, unspecified; I25.2 Old myocardial infarction; K21.00 Gastro-esophageal reflux disease with esophagitis, without bleeding
CPT/HCPCS: 36410; 36415; 76937; 78452; 80048; 84484; 85025; 85027; 93005; 93017; 93459